=== PATIENT | male | born 1960 | race Caucasian/White ===

== ENCOUNTER 2017-03-11 10:32 | Inpatient (IN) | payer OTHER ==
[2017-03-11 11:02] VITALS: BMI 24.5
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
[2017-03-11] MEDS ORDERED: MENTHOL/PHENOL 1 EACH UD MM PRN (11:41)
[2017-03-11] MEDS ORDERED: guaiFENesin/D-METHORPHAN HB 10 ML UNIT-DOSE CUPS PO PRN (11:41)
[2017-03-11] MEDS ORDERED: LOPERAMIDE HCL 2 MG CAPSULE PO PRN (11:41)
[2017-03-11] MEDS ORDERED: P-EPHED 60MG/TRIPROLIDI 2.5MG TABLET PO PRN (11:41)
[2017-03-11] MEDS ORDERED: MAGNESIUM HYDROX 2400MG/30ML ORAL SUSPENSION 30 ML CUP PO PRN (11:41)
[2017-03-11] MEDS ORDERED: MAGNESIUM CITRATE 300 ML BOTTLE PO PRN (11:41)
[2017-03-11] MEDS ORDERED: ACETAMINOPHEN 325 MG TABLET (FP) PO PRN (11:41)
[2017-03-11] MEDS ORDERED: NICOTINE POLACRILEX 4 MG GUM BUC PRN (11:41)
[2017-03-11] MEDS ORDERED: MAG HYDROX/AL HYDROX/SIMETH 30 ML UNIT-DOSE CUP PO PRN (11:41)
[2017-03-11] MEDS ORDERED: diazePAM 5 MG TABLET PO ONE (12:45)
[2017-03-11] MEDS ORDERED: METHADONE HCL 10 MG TABLET (FOR DETOX USE ONLY) PO ONE ×2 (12:45→23:00)
[2017-03-11] MEDS: diazePAM 5 MG TABLET PO SCH ×2 (13:38→22:26)
--- NOTE | 2017-03-11 16:09 | EKG ---
Test Reason : Blood Pressure : / mmHG Vent. Rate : 085 BPM Atrial Rate : 085 BPM P-R Int : 154 ms QRS Dur : 090 ms QT Int : 396 ms P-R-T Axes : 059 044 054 degrees QTc Int : 471 ms NORMAL SINUS RHYTHM POSSIBLE LEFT ATRIAL ENLARGEMENT BORDERLINE ECG WHEN COMPARED WITH ECG OF 16-NOV-2010 22:12, LEFT POSTERIOR FASCICULAR BLOCK IS NO LONGER PRESENT T WAVE INVERSION NO LONGER EVIDENT IN LATERAL LEADS Confirmed by GEOFF SHI MD ([id number]) on 03/11/2017 4:08:53 PM Referred By: Confirmed By:GEOFF SHI MD
[2017-03-11] MEDS: IBUPROFEN 400 MG TABLET (FP) PO PRN (20:20)
[2017-03-11] MEDS: THIAMINE HCL 100 MG TABLET (FP) PO SCH (22:25)
[2017-03-11] MEDS: diphenhydrAMINE HCL 50 MG CAPSULE PO PRN (22:26)
[2017-03-12] MEDS ORDERED: TRIMETHOBENZAMIDE HCL 200MG/2ML INJ IM PRN (00:27)
[2017-03-12] MEDS: IBUPROFEN 400 MG TABLET (FP) PO PRN ×3 (03:57→22:17)
[2017-03-12] MEDS: diazePAM 5 MG TABLET PO SCH ×3 (05:40→22:16)
[2017-03-12] MEDS: diazePAM 5 MG TABLET PO PRN ×2 (09:00→17:14)
[2017-03-12 09:54] LABS: ALBUMIN 3.5 g/dl (3.4-5.0); ANION GAP 11 (8-16); CALCIUM 8.8 mg/dL (8.5-10.1); CO2 24 mmol/L (21-32); COCKROFT - GAULT 128.48; CREATININE 0.7 mg/dL (0.7-1.3); GLUCOSE,RANDOM 93 mg/dL (74-106); SGOT/AST 16 U/L (15-37); SGPT/ALT 15 U/L (12-78)
[2017-03-12 09:56] LABS: ALK PHOS 67 U/L (45-117); BILIRUBIN,TOTAL 0.9 mg/dL (0.2-1.0); TOT PROT 7.9 g/dl (6.4-8.2)
[2017-03-12 09:57] LABS: MCH 29.4 pg (25.7-33.7); MCHC 34.1 g/dl (32.0-35.9); MEAN CELL VOLUME 86.2 fl (80-96); MEAN PLT VOLUME 8.1 fl (7.5-11.1); PLATELET COUNT 280 K/MM3 (134-434); RDW 13.7 % (11.9-15.9); WHITE BLOOD COUNT 9.9 K/mm3 (4.0-10.0)
[2017-03-12] MEDS ORDERED: METHADONE DETOX 10 MG/1 ML [20ML VIAL] IM ONE (10:00)
[2017-03-12] MEDS ORDERED: METHADONE HCL 10 MG TABLET (FOR DETOX USE ONLY) PO SCH (10:00)
[2017-03-12 10:22] LABS: URINE APPEARANCE CLEAR; URINE BILIRUBIN NEGATIVE (NEGATIVE); URINE BLOOD NEGATIVE (NEGATIVE); URINE COLOR YELLOW; URINE GLUCOSE (UA) NEGATIVE (NEGATIVE); URINE KETONE 1+ (NEGATIVE); URINE LEUK ESTERASE NEGATIVE (NEGATIVE); URINE NITRITE NEGATIVE (NEGATIVE); URINE PROTEIN NEGATIVE (NEGATIVE); URINE UROBILINOGEN NEGATIVE E.U./dl (0.2-1.0)
[2017-03-12] MEDS: PRENATAL VITAMINS W/ FOLIC ACID TABLET (FP) PO SCH (10:50)
--- NOTE | 2017-03-12 13:58 | PN ---
S CIWA - CIWA Score Nausea/Vomitin Muscle Tremors: 4-Moderate,w/Arms Extend Anxiety: 4-Mod. Anxious/Guarded Agitation: 4-Moderately Restless Paroxysmal Sweats: No Perspiration Orientation: 0-Oriented Tacttile Disturbances: 1-Very Mild Itch/Numbness Auditory Disturbances: 0-None Visual Disturbances: 0-None Headache: 2-Mild CIWA-Ar Total Score: 18 [facility] COWS - Scale Resting Pulse: 0= [place] 80 or Below Sweatin= Chills/Flushing Restless Observation: 3= Extraneous Movement Pupil Size: 0= Normal to Room Light Bone or Joint Aches: 2= Severe Diffuse Aches Runny Nose/ Eye Tearin= Runny Nose/Eyes GI Upset > 30mins: 3= Vomiting/Diarrhea Tremor Observation of Outstretched Hands: 2= Slight Tremor Visible Yawning Observation: 0= None Anxiety or Irritability: 2=Irritable/Anxious Goose Flesh Skin: 0=Smooth Skin COWS Score: 15 [facility] Progress Note (SOAP) Subjective: N/V, tremor, chills, sweating, interrupted sleep, backache, feeling weak Objective: 03/12/17 13:54 Last Vital Signs Temp Pulse Resp BP Pulse Ox 98.9 F 64 18 161/90 03/12/17 13:14 03/12/17 13:14 03/12/17 13:14 03/12/17 13:14 Laboratory Tests 03/11/17 03/12/17 03/12/17 08:40 08:00 08:00 WBC 9.9 RBC 5.29 Hgb 15.6 Hct 45.6 MCV 86.2 MCHC 34.1 RDW 13.7 Plt Count 280 D MPV 8.1 Sodium 142 Potassium 3.7 Chloride 107 Carbon Dioxide 24 Anion Gap 11 BUN 11 D Creatinine 0.7 Creat Clearance w eGFR > 60 Random Glucose 93 D Calcium 8.8 Total Bilirubin 0.9 D AST 16 ALT 15 D Alkaline Phosphatase 67 D Total Protein 7.9 Albumin 3.5 Urine Color Yellow Urine Appearance Clear Urine pH 6.0 Urine Protein Negative Urine Glucose (UA) Negative Urine Ketones 1+ H Urine Blood Negative Urine Nitrite Negative Urine Bilirubin Negative Urine Urobilinogen Negative Ur Leukocyte Esterase Negative RPR Titer 03/12/17 08:00 WBC RBC Hgb Hct MCV MCHC RDW Plt Count MPV Sodium Potassium Chloride Carbon Dioxide Anion Gap BUN Creatinine Creat Clearance w eGFR Random Glucose Calcium Total Bilirubin AST ALT Alkaline Phosphatase Total Protein Albumin Urine Color Urine Appearance Urine pH Urine Protein Urine Glucose (UA) Urine Ketones Urine Blood Urine Nitrite Urine Bilirubin Urine Urobilinogen Ur Leukocyte Esterase RPR Titer Nonreactive Labs noted Assessment: 03/12/17 13:55 Withdrawal symptoms Plan: Continue detox, encouraged to drink lots of water. Recommends changing regular diet to clear liquids but patient disagrees. Methadone 20mg PO morning dose changed to IM administration due to vomiting. Repeat BMP in AM.
[2017-03-12] MEDS: THIAMINE HCL 100 MG TABLET (FP) PO SCH (22:16)
[2017-03-12] MEDS: diphenhydrAMINE HCL 50 MG CAPSULE PO PRN (22:18)
[2017-03-13] MEDS: diazePAM 5 MG TABLET PO PRN ×3 (05:34→18:13)
[2017-03-13] MEDS: PRENATAL VITAMINS W/ FOLIC ACID TABLET (FP) PO SCH (10:37)
[2017-03-13] MEDS: METHADONE HCL 5 MG TABLET (FOR DETOX USE ONLY) PO SCH (10:37)
[2017-03-13] MEDS: diazePAM 5 MG TABLET PO SCH ×2 (10:37→22:27)
--- NOTE | 2017-03-13 14:13 | CONSULT ---
[facility] Psychiatric Consult - Data Date of interview: 03/13/17 Admission source: [facility] Identifying data: Readmission to [facility] for this 56 y/o male seeking detox treatment for heroin,alcohol and xanax dependence.Patient is single without children (self-report),homeless and employed.Patient is a hostile ,unreliable and irrritable historian. Substance Abuse History: - Smoking Cessation. Smoking history: Current every day smoker. Have you smoked in the past 12 months: Yes. Aproximately how many cigarettes per day: 6. Initiated information on smoking cessation: Yes. ' Breaking Loose' booklet given: 03/11/17 (give on floor). - Substance & Tx. History. Hx Alcohol Use: Yes. Hx Substance Use: Yes. Substance Use Type: Alcohol, Heroin, Tranquilizers. Hx Substance Use Treatment: Yes (hx methadone, detox, rehab). - Substances Abused. Heroin. Route: Injection. Frequency: Daily. Amount used: 6 bags. Age of first use: 42. Date of Last Use: . Alcohol. Route: Oral. Frequency: Daily. Amount used: two 24oz cans beer. Age of first use: 15. Date of Last Use: 03/10/17. Alprazolam (Xanax) . Route: Oral. Frequency: Daily. Amount used: three 4mg. Age of first use: 42. Date of Last Use: 03/10/17. Benzodiazepine (Klonopin). Route: Oral. Frequency: Daily. Amount used: 2mg. Age of first use: 42. Date of Last Use: 03/10/17. Confirmed by patient. Medical History: History of withdrawal-related seizures and orthosurgery,four years ago,for fracture of right femur (sofia in situ). Psychiatric History: Patient denies. Physical/Sexual Abuse/Trauma History: Patient denies. Additional Comment: Urine Drug Screen Results: OPI-Opiates, BZO- Benzodiazepines.Noted. Mental Status Exam - Mental Status Exam Alert and Oriented to: Time, Place, Person Cognitive Function: Good Patient Appearance: Disheveled Mood: Withdrawn, Irritable Affect: Mood Congruent Patient Behavior: Sedated (light sedation), Fatigued Speech Pattern: Delayed (but coherent,non-spontaneous) Voice Loudness: Moderately Soft/Quiet Thought Process: Goal Oriented Thought Disorder: Not Present Hallucinations: Denies Suicidal Ideation: Denies Homicidal Ideation: Denies Insight/Judgement: Poor Sleep: Poorly, Difficulty falling asleep Appetite: Fair Muscle strength/Tone: Normal Gait/Station: Normal Psychiatric Findings - Problem List ([place] 1, 2,3) (1) Alcohol dependence with uncomplicated withdrawal Current Visit: Yes Status: Acute (2) Sedative, hypnotic or anxiolytic dependence with intoxication, uncomplicated Current Visit: Yes Status: Acute (3) Uncomplicated opioid dependence Current Visit: Yes Status: Acute (4) Nicotine dependence Current Visit: Yes Status: Acute Qualifiers: Nicotine product type: cigarettes Substance use status: uncomplicated Qualified Code(s): F17.210 - Nicotine dependence, cigarettes, uncomplicated (5) Substance induced mood disorder Current Visit: Yes Status: Acute (6) History of seizure Current Visit: Yes Status: Chronic (7) Insomnia Current Visit: Yes Status: Acute - Initial Treatment Plan Initial Treatment Plan: Psychoeducation.Detoxification.Zolpidem 5 mg po hs prn.Patient is made aware of potential for parasomnias.He agrees with this careplan.Observation.
--- NOTE | 2017-03-13 14:27 | PN ---
[facility] CIWA - CIWA Score Nausea/Vomitin-No Nausea/No Vomiting Muscle Tremors: 4-Moderate,w/Arms Extend Anxiety: 4-Mod. Anxious/Guarded Agitation: 3 Paroxysmal Sweats: 3 Orientation: 0-Oriented Tacttile Disturbances: 0-None Auditory Disturbances: 0-None Visual Disturbances: 0-None Headache: 0-None Present CIWA-Ar Total Score: 14 S COWS - Scale Resting Pulse: 1= [place] 81-100 Sweatin=Flushed/Facial Moisture Restless Observation: 1= Difficult to Sit Still Pupil Size: 0= Normal to Room Light Bone or Joint Aches: 2= Severe Diffuse Aches Runny Nose/ Eye Tearin= Runny Nose/Eyes GI Upset > 30mins: 2= Nausea/Diarrhea Tremor Observation of Outstretched Hands: 2= Slight Tremor Visible Yawning Observation: 1= 1-2x During Session Anxiety or Irritability: 2=Irritable/Anxious Goose Flesh Skin: 0=Smooth Skin COWS Score: 15 [facility] Progress Note (SOAP) Subjective: Anxiety,tremors,sweating,interrupted sleep,restless Objective: 03/13/17 14:26 Last Vital Signs Temp Pulse Resp BP Pulse Ox 97.2 F L 86 20 131/83 03/13/17 09:24 03/13/17 13:25 03/13/17 13:25 03/13/17 13:25 Laboratory Tests 03/11/17 03/12/17 03/12/17 08:40 08:00 08:00 WBC 9.9 RBC 5.29 Hgb 15.6 Hct 45.6 MCV 86.2 MCHC 34.1 RDW 13.7 Plt Count 280 D MPV 8.1 Sodium 142 Potassium 3.7 Chloride 107 Carbon Dioxide 24 Anion Gap 11 BUN 11 D Creatinine 0.7 Creat Clearance w eGFR > 60 Random Glucose 93 D Calcium 8.8 Total Bilirubin 0.9 D AST 16 ALT 15 D Alkaline Phosphatase 67 D Total Protein 7.9 Albumin 3.5 Urine Color Yellow Urine Appearance Clear Urine pH 6.0 Ur Specific [place] <= 1.005 Urine Protein Negative Urine Glucose (UA) Negative Urine Ketones 1+ H Urine Blood Negative Urine Nitrite Negative Urine Bilirubin Negative Urine Urobilinogen Negative Ur Leukocyte Esterase Negative RPR Titer 03/12/17 08:00 WBC RBC Hgb Hct MCV MCHC RDW Plt Count MPV Sodium Potassium Chloride Carbon Dioxide Anion Gap BUN Creatinine Creat Clearance w eGFR Random Glucose Calcium Total Bilirubin AST ALT Alkaline Phosphatase Total Protein Albumin Urine Color Urine Appearance Urine pH Ur Specific [place] Urine Protein Urine Glucose (UA) Urine Ketones Urine Blood Urine Nitrite Urine Bilirubin Urine Urobilinogen Ur Leukocyte Esterase RPR Titer Nonreactive labs noted Assessment: 03/13/17 14:26 Withdrawal sx. Plan: Continue detox
[2017-03-13] MEDS: IBUPROFEN 400 MG TABLET (FP) PO PRN (22:27)
[2017-03-13] MEDS: THIAMINE HCL 100 MG TABLET (FP) PO SCH (22:27)
[2017-03-13] MEDS: ZOLPIDEM TARTRATE 5 MG TABLET PO PRN (22:28)
[2017-03-14] MEDS: diazePAM 5 MG TABLET PO PRN ×2 (04:54→11:33)
[2017-03-14] MEDS: IBUPROFEN 400 MG TABLET (FP) PO PRN ×2 (04:57→23:12)
[2017-03-14] MEDS: NICOTINE 21 MG/24 HOURS TOPICAL PATCH TD SCH (10:17)
[2017-03-14] MEDS: PRENATAL VITAMINS W/ FOLIC ACID TABLET (FP) PO SCH (10:17)
[2017-03-14] MEDS: diazePAM 5 MG TABLET PO SCH ×2 (10:17→22:18)
[2017-03-14] MEDS: METHADONE HCL 5 MG TABLET (FOR DETOX USE ONLY) PO SCH (10:17)
--- NOTE | 2017-03-14 10:55 | PN ---
[facility] Progress Note (SOAP) Subjective: Sweating,interrupted sleep,restless Objective: 03/14/17 10:53 Vital Signs - 8 hr 03/14/17 03/14/17 03/14/17 03:30 06:39 09:49 Temperature 95.9 F L 96.8 F L Pulse Rate 107 H 114 H Respiratory 18 16 18 Rate Blood Pressure 146/85 115/79 Laboratory Last Values WBC 9.9 K/mm3 (4.0-10.0) 03/12/17 08:00 RBC 5.29 M/mm3 (4.00-5.60) 03/12/17 08:00 Hgb 15.6 GM/dL (11.7-16.9) 03/12/17 08:00 Hct 45.6 % (35.4-49) 03/12/17 08:00 MCV 86.2 fl (80-96) 03/12/17 08:00 MCHC 34.1 g/dl (32.0-35.9) 03/12/17 08:00 RDW 13.7 % (11.9-15.9) 03/12/17 08:00 Plt Count 280 K/MM3 (134-434) D 03/12/17 08:00 MPV 8.1 fl (7.5-11.1) 03/12/17 08:00 Sodium 142 mmol/L (136-145) 03/12/17 08:00 Potassium 3.7 mmol/L (3.5-5.1) 03/12/17 08:00 Chloride 107 mmol/L (98-107) 03/12/17 08:00 Carbon Dioxide 24 mmol/L (21-32) 03/12/17 08:00 Anion Gap 11 (8-16) 03/12/17 08:00 BUN 11 mg/dL (7-18) D 03/12/17 08:00 Creatinine 0.7 mg/dL (0.7-1.3) 03/12/17 08:00 Creat Clearance w eGFR > 60 (>60) 03/12/17 08:00 Random Glucose 93 mg/dL (74-106) D 03/12/17 08:00 Calcium 8.8 mg/dL (8.5-10.1) 03/12/17 08:00 Total Bilirubin 0.9 mg/dL (0.2-1.0) D 03/12/17 08:00 AST 16 U/L (15-37) 03/12/17 08:00 ALT 15 U/L (12-78) D 03/12/17 08:00 Alkaline Phosphatase 67 U/L (45-117) D 03/12/17 08:00 Total Protein 7.9 g/dl (6.4-8.2) 03/12/17 08:00 Albumin 3.5 g/dl (3.4-5.0) 03/12/17 08:00 Urine Color Yellow 03/11/17 08:40 Urine Appearance Clear 03/11/17 08:40 Urine pH 6.0 (5.0-8.0) 03/11/17 08:40 Ur Specific [place] <= 1.005 (1.005-1.025) 03/11/17 08:40 Urine Protein Negative (NEGATIVE) 03/11/17 08:40 Urine Glucose (UA) Negative (NEGATIVE) 03/11/17 08:40 Urine Ketones 1+ (NEGATIVE) H 03/11/17 08:40 Urine Blood Negative (NEGATIVE) 03/11/17 08:40 Urine Nitrite Negative (NEGATIVE) 03/11/17 08:40 Urine Bilirubin Negative (NEGATIVE) 03/11/17 08:40 Urine Urobilinogen Negative E.U./dl (0.2-1.0) 03/11/17 08:40 Ur Leukocyte Esterase Negative (NEGATIVE) 03/11/17 08:40 RPR Titer Nonreactive (NONREACTIVE) 03/12/17 08:00 Hepatitis C Antibody >11.0 s/co ratio (0.0-0.9) H 03/12/17 08:00 labs noted, pt. denies hx. of hepatitis C. We'll refer him to the [facility] for f/u & treatment. Assessment: 03/14/17 10:54 Withdrawal sx. Plan: Continue detox
[2017-03-14] MEDS: ZOLPIDEM TARTRATE 5 MG TABLET PO PRN (22:18)
[2017-03-14] MEDS: THIAMINE HCL 100 MG TABLET (FP) PO SCH (22:18)
[2017-03-15] MEDS: hydrOXYzine PAMOATE 50 MG CAPSULE (FP) PO PRN ×2 (07:10→10:18)
--- NOTE | 2017-03-15 09:39 | PN ---
S Progress Note (SOAP) Subjective: ALERT,IRRITABLE,ANXIOUS,INTERRUPTED SLEEP Objective: 03/15/17 09:38 Vital Signs Temperature 99.6 F 03/15/17 09:35 Pulse Rate 101 H 03/15/17 09:35 Respiratory Rate 20 03/15/17 09:35 Blood Pressure 120/78 03/15/17 09:35 O2 Sat by Pulse Oximetry (%) Assessment: 03/15/17 09:38 WITHDRAWAL SYMPTOM Plan: CONTINUE DETOX,DISCHARGE IN AM
[2017-03-15] MEDS ORDERED: diazePAM 5 MG TABLET PO SCH (10:00)
[2017-03-15] MEDS ORDERED: METHADONE HCL 10 MG TABLET (FOR DETOX USE ONLY) PO SCH (10:00)
[2017-03-15] MEDS: NICOTINE 21 MG/24 HOURS TOPICAL PATCH TD SCH (10:17)
[2017-03-15] MEDS: PRENATAL VITAMINS W/ FOLIC ACID TABLET (FP) PO SCH (10:17)
[2017-03-15] MEDS: ZOLPIDEM TARTRATE 5 MG TABLET PO PRN (22:27)
[2017-03-15] MEDS: THIAMINE HCL 100 MG TABLET (FP) PO SCH (22:27)
[2017-03-15] MEDS: IBUPROFEN 400 MG TABLET (FP) PO PRN (22:29)
[2017-03-16] MEDS: hydrOXYzine PAMOATE 50 MG CAPSULE (FP) PO PRN (05:23)
[2017-03-16] MEDS ORDERED: METHADONE HCL 5 MG TABLET (FOR DETOX USE ONLY) PO SCH (06:00)
[2017-03-16 06:42] VITALS: BP 124/87; PULSE 93; TEMP 97.1
--- NOTE | 2017-03-16 12:59 | DS ---
[facility] Detox Discharge Summary Admission Date: 03/11/17 Discharge Date: 03/16/17 - History Present History: Alcohol Dependence, Opioid Dependence, Sedative Dependence Additional Comments: ADVISED PATIENT TO FOLLOW-UP WITH CREDIT REPORTING CLERK AFTER DISCHARGE FROM DETOX FOR GENERAL MEDICAL ASSESSMENT AND FOR ABNORMAL ADMISSION LAB VALUES. Pertinent Past History: Seizures (Substance Detox-Related). - Physical Exam Results Vital Signs: Vital Signs Temperature 97.1 F L 03/16/17 06:42 Pulse Rate 93 H 03/16/17 06:42 Respiratory Rate 18 03/16/17 06:42 Blood Pressure 124/87 03/16/17 06:42 O2 Sat by Pulse Oximetry (%) Pertinent Admission Physical Exam Findings: WITHDRAWAL SYMPTOMS. Laboratory Last Values WBC 9.9 K/mm3 (4.0-10.0) 03/12/17 08:00 RBC 5.29 M/mm3 (4.00-5.60) 03/12/17 08:00 Hgb 15.6 GM/dL (11.7-16.9) 03/12/17 08:00 Hct 45.6 % (35.4-49) 03/12/17 08:00 MCV 86.2 fl (80-96) 03/12/17 08:00 MCHC 34.1 g/dl (32.0-35.9) 03/12/17 08:00 RDW 13.7 % (11.9-15.9) 03/12/17 08:00 Plt Count 280 K/MM3 (134-434) D 03/12/17 08:00 MPV 8.1 fl (7.5-11.1) 03/12/17 08:00 Sodium 142 mmol/L (136-145) 03/12/17 08:00 Potassium 3.7 mmol/L (3.5-5.1) 03/12/17 08:00 Chloride 107 mmol/L (98-107) 03/12/17 08:00 Carbon Dioxide 24 mmol/L (21-32) 03/12/17 08:00 Anion Gap 11 (8-16) 03/12/17 08:00 BUN 11 mg/dL (7-18) D 03/12/17 08:00 Creatinine 0.7 mg/dL (0.7-1.3) 03/12/17 08:00 Creat Clearance w eGFR > 60 (>60) 03/12/17 08:00 Random Glucose 93 mg/dL (74-106) D 03/12/17 08:00 Calcium 8.8 mg/dL (8.5-10.1) 03/12/17 08:00 Total Bilirubin 0.9 mg/dL (0.2-1.0) D 03/12/17 08:00 AST 16 U/L (15-37) 03/12/17 08:00 ALT 15 U/L (12-78) D 03/12/17 08:00 Alkaline Phosphatase 67 U/L (45-117) D 03/12/17 08:00 Total Protein 7.9 g/dl (6.4-8.2) 03/12/17 08:00 Albumin 3.5 g/dl (3.4-5.0) 03/12/17 08:00 Urine Color Yellow 03/11/17 08:40 Urine Appearance Clear 03/11/17 08:40 Urine pH 6.0 (5.0-8.0) 03/11/17 08:40 Ur Specific [place] <= 1.005 (1.005-1.025) 03/11/17 08:40 Urine Protein Negative (NEGATIVE) 03/11/17 08:40 Urine Glucose (UA) Negative (NEGATIVE) 03/11/17 08:40 Urine Ketones 1+ (NEGATIVE) H 03/11/17 08:40 Urine Blood Negative (NEGATIVE) 03/11/17 08:40 Urine Nitrite Negative (NEGATIVE) 03/11/17 08:40 Urine Bilirubin Negative (NEGATIVE) 03/11/17 08:40 Urine Urobilinogen Negative E.U./dl (0.2-1.0) 03/11/17 08:40 Ur Leukocyte Esterase Negative (NEGATIVE) 03/11/17 08:40 RPR Titer Nonreactive (NONREACTIVE) 03/12/17 08:00 Hepatitis C Antibody >11.0 s/co ratio (0.0-0.9) H 03/12/17 08:00 HCV Quantitation Hcv not detected IU/mL (.) 03/14/17 08:15 HCV RNA PCR log helicopter pilot/ml TNP 03/14/17 08:15 LABS NOTED. - Treatment Hospital Course: Detox Protocol Followed, Detoxed Safely, Responded well, Discharged Condition Good Patient has Accepted a Rehab Referral to: PT. ELECTING TO GO HOME. 12-STEP/AA/ NA OUTPATIENT PROGRAMS RECOMMENDED. - Medication Discharge Medications: Ambulatory Orders NK [No Known Home Medication] 03/11/17 - Diagnosis (1) Alcohol dependence with uncomplicated withdrawal Status: Acute (2) Insomnia Status: Chronic Qualifiers: Insomnia type: unspecified Qualified Code(s): G47.00 - Insomnia, unspecified (3) Nicotine dependence Status: Chronic Qualifiers: Nicotine product type: cigarettes Substance use status: uncomplicated Qualified Code(s): F17.210 - Nicotine dependence, cigarettes, uncomplicated (4) Sedative, hypnotic or anxiolytic dependence with intoxication, uncomplicated Status: Acute (5) Substance induced mood disorder Status: Acute (6) Uncomplicated opioid dependence Status: Acute (7) History of seizure Status: Chronic - AMA Did Patient Leave Against Medical Advice: No
== END 2017-03-16 09:17 | disposition home or self-care (01) | DRG 773 ==
LOC: YASAS 10:32 → Y3N 12:18
PROVIDERS: ADMIT Internal Medicine; ATTEND Internal Medicine
PROC: HZ2ZZZZ Detoxification Services for Substance Abuse Treatment (ICD-10-PCS; principal; 2017-03-11)
DX: F11.20 Opioid dependence, uncomplicated (principal); F13.230 Sedative, hypnotic or anxiolytic dependence with withdrawal, uncomplicated; F10.230 Alcohol dependence with withdrawal, uncomplicated; F17.210 Nicotine dependence, cigarettes, uncomplicated; F19.24 Other psychoactive substance dependence with psychoactive substance-induced mood disorder; G47.00 Insomnia, unspecified; Z86.69 Personal history of other diseases of the nervous system and sense organs
CPT/HCPCS: 36415; 80053; 81003; 85027; 86593; 87522; 93005; 93010

== ENCOUNTER 2017-03-17 22:52 | Emergency (ER) | payer OTHER ==
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
[2017-03-17 23:17] VITALS: BMI 23.6
[2017-03-18 11:34] VITALS: BP 123/64; PULSE 77; TEMP 97.9
== END 2017-03-18 11:50 | disposition home or self-care (01) ==
LOC: JER 22:52
DX: F11.10 Opioid abuse, uncomplicated (principal); B18.2 Chronic viral hepatitis C; F17.210 Nicotine dependence, cigarettes, uncomplicated; Z59.0 Homelessness
CPT/HCPCS: 99283-25